=== PATIENT | female | born 1935 | race Caucasian/White ===

== ENCOUNTER 2016-09-15 08:25 | Emergency (ER) | payer MEDICARE, BC ==
[~2016-09-15] VITALS: Ht 157.5 cm; Wt 61.0 kg
[~2016-09-15 08:25] MED LIST: ASPI81TA11 PO; DULE100A PO; DUONI NEB; LISI-363 PO; METO50TA PO; PANT20 PO; SIMV10 PO; SYNT25TA PO; TRAM50TA PO
[2016-09-15 08:30] VITALS: BP 189/94; PULSE 77; RESP 18; TEMP 97.7; O2SAT 93
[2016-09-15] MEDS ORDERED: RESP: ALBUTEROL 2.5 MG/IPRATROPIUM 0.5 MG NEB (SCH) NEB ONE (09:00)
--- NOTE | 2016-09-15 09:02 | PD ---
HPI Chief Complaint: Respiratory Symptoms Time Seen by Provider: 08:50 Travel History International Travel<30 days: No Contact w/Intl Traveler<30days: No Traveled to known affect area: No History of Present Illness HPI The patient was seen and examined in the presence of the nurse. She complains of shortness of breath. She is chronically short of breath on a daily basis. She has COPD and is nebulizer dependent. Denies fever. She has rib pain and bruising from a fall 3 days ago. She hit her left low chest wall during that fall. Symptoms severity is moderate. No alleviating factors. 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) Endocrine: Yes Gastrointestinal Disorders: Yes GERD: Yes Genitourinary: No Hepatitis: No Hiatal Hernia: No Hypertension: Yes Immune Disorder: No Musculoskeletal: Yes Neurologic: No Psychiatric: No Respiratory: Yes (COPD) Thyroid Disease: Yes (HYPOTHYROID) Menopausal: Yes : 4 Para: 1 Miscarriage: 3 : 0 Past Surgical History Abdominal Surgery: Yes (APPENDECTOMY) Body Medical Devices: LOWER BACK SCREW Ear Surgery: No Endocrine Surgery: No Eye Surgery: Yes (REPAIR CATARACT) Genitourinary Surgery: Yes (BLADDER PROLAPSE/RECTAL PROLAPSE REPAIR) Gynecologic Surgery: Yes (PARTIAL HYSTERECTOMY ) Hysterectomy: Yes (Partial - has uterus/has no ovaries) Oral Surgery: No Other Surgery: Yes Social History Alcohol Use: Yes (Per patient socially ) Tobacco Use: No (4 PER DAY) Substance Use: No Allergies-Medications (Allergen,Severity, Reaction): Coded Allergies: No Known Allergies (Verified , 09/15/16) Reported Meds & Prescriptions Reported Meds & Active Scripts Active Reported Dulera 120 Act Inh (Mometasone-Formoterol 120 Act Inh) 100-5 Mcg/Act Inh 2 Puff INH BID Duoneb (Ipratropium-Albuterol Neb) 0.5-2.5 Mg/3 Ml Neb 1 Nebule INH Q4HR NEB Hydrocodone-Acetaminophen 5-325 mg Tab 1 Tab PO Q4H PRN Simvastatin 40 Mg Tab 40 Mg PO HS Synthroid (Levothyroxine Sodium) 50 Mcg Tab 50 Mcg PO DAILY Metoprolol Tartrate 25 Mg Tab 25 Mg PO DAILY Review of Systems General / Constitutional: No: Fever Eyes: No: Visual changes HENT: No: Headaches Cardiovascular: Positive: Chest Pain or Discomfort Respiratory: Positive: Cough, Shortness of Breath, Wheezing Gastrointestinal: No: Abdominal Pain Genitourinary: No: Dysuria Musculoskeletal: No: Pain Skin: No Rash Neurologic: No: Weakness Psychiatric: No: Depression Endocrine: No: Polydipsia Hematologic/Lymphatic: No: Easy Bruising Physical Exam Narrative GENERAL: Well-nourished, well-developed patient in no apparent distress. SKIN: Warm and dry. HEAD: Atraumatic. Normocephalic. EYES: Pupils equal and round. No scleral icterus. No injection or drainage. ENT: No nasal bleeding or discharge. Mucous membranes pink and moist. NECK: Trachea midline. No JVD. CARDIOVASCULAR: Regular rate and rhythm. No murmur appreciated. RESPIRATORY: No accessory muscle use. Clear to auscultation. Breath sounds equal bilaterally. GASTROINTESTINAL: Abdomen soft, non-tender, nondistended. Hepatic and splenic margins not palpable. MUSCULOSKELETAL: Has left low chest wall tenderness in the posterior and midaxillary line. There is a oval-shaped area of ecchymosis there. No clubbing. No cyanosis. No edema. NEUROLOGICAL: Awake and alert. No obvious cranial nerve deficits. Motor grossly within normal limits. Normal speech. PSYCHIATRIC: Appropriate mood and affect; insight and judgment normal. Data Data Last Documented VS Vital Signs Date Time Temp Pulse Resp B/P Pulse Ox O2 Delivery O2 Flow Rate FiO2 09/15/16 08:30 97.7 77 18 189/94 93 Orders Chest, Single Ap (09/15/16 ) Albuterol-Ipratropium Neb (Duoneb Neb) (09/15/16 09:00) [facility] Medical Decision Making Medical Screen Exam Complete: Yes Emergency Medical Condition: Yes Medical Record Reviewed: Yes Differential Diagnosis COPD, rib fracture, contusion Narrative Course I have reviewed the patient's electronic medical record. She was here last in 2014 for a problem with trigger finger I reviewed her chest x-ray I gave her a nebulizer treatment Diagnosis Primary Impression: COPD with acute exacerbation Additional Impression: Contusion of rib on left side Qualified Code: S20.212A - Contusion of rib on left side, initial encounter Additional Instructions: The patient was advised to follow up with their physician and return if they worsen. Med/Other Pt SpecificInfo: Prescription(s) given Disposition: 01 DISCHARGE HOME Condition: Stable Jong Portillo MD Sep 15, 2016 09:02
[2016-09-15] MEDS ORDERED: HYDR-3516 PO (09:05)
[2016-09-15] MEDS ORDERED: IPRASOL INH (09:05)
[2016-09-15] MEDS ORDERED: DULE100A INH (09:05)
[2016-09-15] MEDS ORDERED: METO25TA3 PO (09:05)
[2016-09-15] MEDS ORDERED: SIMV40TA PO (09:05)
[2016-09-15] MEDS ORDERED: LEVO.05 PO (09:05)
--- NOTE | 2016-09-15 09:27 | RADHPO ---
EXAM DATE/TIME: 09/15/2016 09:16 [facility] COMPARISON: No previous studies available for comparison. INDICATIONS : Short of breath, cough, chest pain MEDICAL HISTORY : Chronic obstructive pulmonary disease. SURGICAL HISTORY : Spinal surgery ENCOUNTER: Initial ACUITY: 2 weeks PAIN SCORE: 10/10 LOCATION: Bilateral chest FINDINGS: Underinflated AP view of the chest demonstrates a normal-sized cardiac silhouette. No pleural effusio n, airspace consolidation, or pneumothorax is identified. There is symmetric biapical scar. The bones and soft tissues demonstrate no acute finding. CONCLUSION: Underinflated examination without an acute cardiopulmonary abnormality identified. Graham Dey MD on September 15, 2016 at 9:25 Board Certified Radiologist. This report was verified electronically.
[2016-09-15] MEDS ORDERED: PRED20 PO (10:18)
== END 2016-09-15 10:27 | disposition home or self-care (01) ==
LOC: PHED 08:25
DX: J44.9 Chronic obstructive pulmonary disease, unspecified (principal); S20.212A Contusion of left front wall of thorax, initial encounter; I10 Essential (primary) hypertension; K21.9 Gastro-esophageal reflux disease without esophagitis; E03.9 Hypothyroidism, unspecified; F17.210 Nicotine dependence, cigarettes, uncomplicated; W19.XXXA Unspecified fall, initial encounter; Y99.8 Other external cause status
CPT/HCPCS: 71010; 94664; 99284